=== PATIENT | female | born 1980 | race Caucasian/White ===

== ENCOUNTER 2022-11-15 08:32 | Outpatient (CLI) | payer BC, SELFPAY ==
[2022-11-15 14:00] LABS: Albumin* 4.7 g/dL (3.3-5.0); Chloride* 106 mmol/L (96-114)
[2022-11-15 14:01] LABS: Potassium* 4.7 mmol/L (3.6-5.1); Sodium* 139 mmol/L (135-149)
[2022-11-15 14:03] LABS: Alkaline Phosphatase* 40 U/L (40-150); Aspartate Amino Transferase* 21 U/L (12-35); Bilirubin Total* 0.7 mg/dL (0.1-1.5); Blood Urea Nitrogen* 12 mg/dL (5-24); Carbon Dioxide* 25 mmol/L (20-32); Cholesterol* 212 mg/dL (90-199); Creatinine* 0.8 mg/dL (0.5-1.5); Estimated Glomerular Filt Rate 94 ml/min; Glucose* 96 mg/dL (60-115); Total Protein* 7.5 g/dL (6.0-8.3)
[2022-11-15 14:04] LABS: Alanine Aminotransferase* 21 U/L (4-35); Calcium* 9.7 mg/dL (8.4-10.6); HDL Cholesterol* 68 mg/dL (>=50); LDL Cholesterol Calculated 128 mg/dL (<100); Triglycerides* 81 mg/dL (40-149)
== END 2022-11-15 08:33 | disposition home or self-care (01) ==
PROVIDERS: PCP Nurse Practitioner Family; Visit Provider Nurse Practitioner Family
DX: D72.819 Decreased white blood cell count, unspecified (principal); Z13.6 Encounter for screening for cardiovascular disorders
CPT/HCPCS: 80053; 80061

== ENCOUNTER 2023-01-21 14:29 | Outpatient (CLI) | payer BC, SELFPAY ==
--- NOTE | 2023-01-21 14:40 | CRLHL7_ITS ---
For Patients: As a result of the Century Cures Act, medical imaging exams and procedure reports are released immediately into your electronic medical record. You may view this report before your referring provider. If you have questions, please contact your health care provider. BILATERAL SCREENING MAMMOGRAM WITH COMPUTER-AIDED DETECTION AND TOMOSYNTHESIS TECHNIQUE: CC, MLO and implant-displaced views were obtained. These mammographic images have been obtained using full-field digital technique. These mammographic images were interpreted with the benefit of computer-aided detection. Breast tomosynthesis was used in this interpretation. COMPARISON FILM: 10/19/21, 09/20/20. FINDINGS: There are scattered areas of fibroglandular density. IMPRESSION: There is no radiographic evidence for malignancy. ASSESSMENT: BI-RADS Category 2: Benign RECOMMENDATION: Routine screening mammogram in 1 year. A lay language report of this examination will be provided to the patient. DEZ LEVINE M.D. Diagnostic Radiologist [email or web address] Transcribed: 01/23/2023, 11:[address]/Dictated by: Dez Levine MD @ 01/22/2023 12:56:00 PM (Electronically Signed)
== END 2023-01-21 14:30 | disposition home or self-care (01) ==
LOC: MAMMO 14:31
PROVIDERS: PCP Nurse Practitioner Family; Visit Provider Nurse Practitioner Family
DX: Z12.31 Encounter for screening mammogram for malignant neoplasm of breast (principal)
CPT/HCPCS: 77063; 77067

== ENCOUNTER 2024-01-23 14:53 | Outpatient (CLI) | payer BC, SELFPAY ==
--- NOTE | 2024-01-23 15:00 | MM_ITS ---
Patient: ARELIS ACUNA Facility:?[facility] Patient ID:?[id number] Site [id number] ID:?[id number]. Site :?[id number] Study:?XRay-Breast Bilateral 3D W/CAD-01/23/2024 3:31:45 PM Ordering Physician:?Meli Camarillo Final Report: BILATERAL SCREENING MAMMOGRAM WITH COMPUTER-AIDED DETECTION AND TOMOSYNTHESIS TECHNIQUE: CC, MLO and Implant displaced views were obtained. These mammographic images have been obtained using full-field digital technique. These mammographic images were interpreted with the benefit of computer-aided detection. Breast Tomosynthesis was used in this interpretation. COMPARISON FILM: 01/21/23, 10/19/21, 09/20/20. FINDINGS: There are scattered areas of fibroglandular density. IMPRESSION: There is no radiographic evidence for malignancy. ASSESSMENT: BI-RADS Category 2: Benign RECOMMENDATION: Routine screening mammogram in 1 year. A lay language report of this examination will be provided to the patient. Dez Carson M.D. Diagnostic Radiologist [email or web address] DSM/sp R& Transcribed: 1:56 p.m[address] SP/Dictated by: Dez Carson MD @ 01/24/2024 11:03:00 AM Signed by:?Dez Carson MD @01/24/2024 3:26:13 PM (Electronic Signature)
== END 2024-01-23 14:54 | disposition home or self-care (01) ==
LOC: MAMMO 14:54
PROVIDERS: PCP Nurse Practitioner Family; Visit Provider Nurse Practitioner Family
DX: Z12.31 Encounter for screening mammogram for malignant neoplasm of breast (principal); Z01.818 Encounter for other preprocedural examination
CPT/HCPCS: 77063; 77067; 80048

== ENCOUNTER 2025-04-14 08:04 | Outpatient (CLI) | payer BC, SELFPAY | END 2025-04-14 08:05 | disposition home or self-care (01) | LOC: LKVREF 08:05 | PROVIDERS: PCP Nurse Practitioner Family; Visit Provider Nurse Practitioner Family | DX: Z00.00 Encounter for general adult medical examination without abnormal findings (principal); Z13.228 Encounter for screening for other metabolic disorders; Z13.6 Encounter for screening for cardiovascular disorders | CPT/HCPCS: 80053; 80061; 87624; 88142 ==

== ENCOUNTER 2025-04-14 09:59 | Outpatient (CLI) | payer BC, SELFPAY ==
[2025-04-19 09:36] LABS: HPV Source Endocervical
== END 2025-04-14 10:00 | disposition home or self-care (01) ==
PROVIDERS: PCP Nurse Practitioner Family; Visit Provider Nurse Practitioner Family
DX: Z11.51 Encounter for screening for human papillomavirus (HPV) (principal); Z12.4 Encounter for screening for malignant neoplasm of cervix; Z00.00 Encounter for general adult medical examination without abnormal findings; Z13.228 Encounter for screening for other metabolic disorders; Z13.6 Encounter for screening for cardiovascular disorders
CPT/HCPCS: 87624; 87625; 88141; 88142

== ENCOUNTER 2025-05-03 09:29 | Outpatient (CLI) | payer BC, SELFPAY ==
--- NOTE | 2025-05-03 11:01 | P.ANES_ITS ---
Anesthesia Charges Start Date/Time Anesthesia Start Date: 05/03/25 Anesthesia Start Time: 10:28 Stop Date/Time Anesthesia Stop Date: 05/03/25 Anesthesia Stop Time: 10:59 Coding CPT Codes CPT Codes: BERNICE LWR INTST NDMA NOS - [id number] ([id number]) P1 - NORMAL HEALTHY PATIENT, QK - MOTORCYCLE POLICE 2-4 CNCRNT ANES PROC, QX - HORSE TREKKING GUIDE SVC W/ MED DIRECTION
--- NOTE | 2025-05-03 11:01 | W.ANESCHARGE ---
Anesthesia Charges Start Date/Time Anesthesia Start Date: 05/03/25 Anesthesia Start Time: 10:28 Stop Date/Time Anesthesia Stop Date: 05/03/25 Anesthesia Stop Time: 10:59 Coding CPT Codes CPT Codes: BERNICE LWR INTST NDDE NOS - [id number] ([id number]) P1 - NORMAL HEALTHY PATIENT, QK - AQUEDUCT AND RESERVOIR KEEPER 2-4 CNCRNT ANES PROC, QX - AQUEDUCT AND RESERVOIR KEEPER SVC W/ MED DIRECTION
--- NOTE | 2025-05-03 11:53 | P.ANES_ITS ---
Anesthesia Charges Start Date/Time Anesthesia Start Date: 05/03/25 Anesthesia Start Time: 10:28 Stop Date/Time Anesthesia Stop Date: 05/03/25 Anesthesia Stop Time: 10:59 Coding CPT Codes CPT Codes: BERNICE LWR INTST NDOH NOS - [id number] ([id number]) P1 - NORMAL HEALTHY PATIENT, QK - HEARINGS REPORTER 2-4 CNCRNT ANES PROC, QX - PAPER SUPERVISOR SVC W/ MED DIRECTION
--- NOTE | 2025-05-03 11:53 | W.ANESCHARGE ---
Anesthesia Charges Start Date/Time Anesthesia Start Date: 05/03/25 Anesthesia Start Time: 10:28 Stop Date/Time Anesthesia Stop Date: 05/03/25 Anesthesia Stop Time: 10:59 Coding CPT Codes CPT Codes: BERNICE LWR INTST NDPA NOS - [id number] ([id number]) P1 - NORMAL HEALTHY PATIENT, QK - HOUSECLEANER FLOOR 2-4 CNCRNT ANES PROC, QX - BSA/AML COMPLIANCE OFFICER SVC W/ MED DIRECTION
== END 2025-05-03 09:30 | disposition home or self-care (01) ==
LOC: OP CLINIC 09:30
PROVIDERS: PCP Nurse Practitioner Family; Visit Provider Surgery
DX: Z12.11 Encounter for screening for malignant neoplasm of colon (principal); D12.2 Benign neoplasm of ascending colon
CPT/HCPCS: 00811; 00812; 45385; 88305; J2704